=== PATIENT | female | born 1995 | race Caucasian/White ===

== ENCOUNTER 2023-08-26 13:14 | Emergency (ER) | payer OTHER ==
[~2023-08-26] VITALS: Ht 165.1 cm; Wt 83.9 kg
[2023-08-26 13:22] VITALS: O2SAT 100
[2023-08-26 13:41] LABS: *BILIRUBIN,URIN NEGATIVE (NEGATIVE); *CLARITY,URINE CLEAR (CLEAR); *COLOR,URINE YELLOW (YELLOW); *KETONES,URINE NEGATIVE (NEGATIVE); *PROTEIN,URINE 2+ (NEGATIVE); LEUKOCYTE ESTERASE ,URINE 1+ (NEGATIVE); NITRITE, URINE NEGATIVE (NEGATIVE); PH,URINE 7.5 (5.0-8.0); UGLUCOSE NEGATIVE (NEGATIVE)
[2023-08-26 14:00] LABS: *BLOOD, URINE TRACE (NEGATIVE)
[2023-08-26 14:16] LABS: *URINE HCG, QUAL NEGATIVE (NEGATIVE)
[2023-08-26 14:52] LABS: BACTERIA,URINE MANY /HPF (NONE SEEN); SQUAMOUS EPITHELIAL CELL,UR MODERATE /HPF (NONE SEEN); WBC,URINE TNTC /HPF (0-3)
[2023-08-26] MEDS ORDERED: NITR100C11 PO (15:07)
== END 2023-08-26 15:15 | disposition home or self-care (01) ==
LOC: ER 13:17
DX: N39.0 Urinary tract infection, site not specified (principal); R10.2 Pelvic and perineal pain; Z79.899 Other long term (current) drug therapy; Z60.2 Problems related to living alone
CPT/HCPCS: 84703; A4606; A4663